=== PATIENT | male | born 1985 | race Caucasian/White ===

== ENCOUNTER 2016-10-18 13:31 | Emergency (ER) | payer OTHER ==
[~2016-10-18] VITALS: Ht 193 cm; Wt 117.9 kg
[2016-10-18 13:59] VITALS: BP 152/77
--- NOTE | 2016-10-18 15:51 | Emergency Room Report ---
History of Present Illness General Chief Complaint: Eye Problems Source: Patient Present Illness HPI 31 YO Male presents to the ED c/o : slow progressive vision loss in the right eye x 2 weeks. Pt. reports loss of vision today was more rapid than over the last two weeks. hx of bilateral myopia and macular degeneration of the left eye. Denies eye pain, redness, scratching sensation or increased tearing. Pt. denies trauma to the eye. denies photophobia, flashing lights, or discharge from the eye. pt reports intermittent burning sensation but otherwise denies eye pain. Pt denies Contact lens use. Denies dysuria, abdominal pain, or rashes. Denies CP, Palpitations, LOC, AMS, dizziness, Changes in Vision, Sensation, paresthesias, or a sudden severe headache. Allergies: Coded Allergies: No Known Allergies (Unverified , 10/18/16) Patient History Past Medical History: see triage record Past Surgical History: none Pertinent Family History: none Immunizations: UTD Reviewed Nursing Documentation: PMH: Agreed, PSxH: Agreed Nursing Documentation-PMH Past Medical History: No History, Except For Hx Neurological Problems: Yes - macular degeneration Review of Systems All Other Systems: negative except mentioned in HPI Physical Exam Vital Signs Date Time Temp Pulse Resp B/P Pulse Ox O2 Delivery O2 Flow Rate FiO2 10/18/16 13:37 98.2 76 18 152/77 98 Room Air Sp02 EP Interpretation: reviewed, normal General Appearance: no apparent distress, alert, GCS 15, non-toxic Head: normocephalic, atraumatic Eyes: bilateral eye EOMI, bilateral eye PERRL, bilateral eye normal inspection , bilateral eye other - no erythema, no increased lacrimation, no d/c noted, bilateral eye visual acuity - right eye 20/40, left eye 20/200, both eyes are 20/40 ENT: hearing grossly normal, normal pharynx, no angioedema, normal voice Neck: full range of motion Respiratory: lungs clear, normal breath sounds, speaking full sentences Cardiovascular #1: regular rate, rhythm, no edema Musculoskeletal: back normal, gait/station normal, normal range of motion, non- tender Neurologic: alert, oriented x3, responsive, motor strength/tone normal, sensory intact, speech normal Psychiatric: judgement/insight normal, memory normal, mood/affect normal Skin: normal color, no rash, warm/dry, well hydrated Medical Decision Making PA Attestation Dr. basilio is my supervising Physician whom patient management has been discussed with. Diagnostic Impression: Primary Impression: Vision loss of right eye ER Course 31 YO Male presents to the ED c/o : slow progressive vision loss in the right eye x 2 weeks. Pt. reports loss of vision today was more rapid than over the last two weeks. hx of bilateral myopia and macular degeneration of the left eye. Denies eye pain, redness, scratching sensation or increased tearing. Pt. denies trauma to the eye. denies photophobia, flashing lights, or discharge from the eye. Pt denies Contact lens use. Ddx considered but are not limited to: corneal abrasion, acute glaucoma, globe rupture, FB, Corneal Ulcer, conjunctivitis. Iridis Vital signs: are WNL, pt. is afebrile H&PE are most consistent with: corneal abrasion ORDERS: -Bedside US shows no evidence of retinal detachment. ED INTERVENTIONS: - phone consult with on-call crumb packer who determined pt. needs to be seen by retinal specialist for accurate diagnosis and treatment. - Moderate time spent on the phone with pt's insurance to facilitate urgent referral to retinal specialist ( 15 minutes) - DISCHARGE: At this time pt. is stable for d/c to home. -Pt is provided with a copy of his urgent referral authorization to be seen by Dr. Horvath, pt. is also provided with his office information. Will provide printed patient care instructions. Care plan and follow up instructions have been discussed with the patient prior to discharge. Last Vital Signs Date Time Temp Pulse Resp B/P Pulse Ox O2 Delivery O2 Flow Rate FiO2 10/18/16 13:59 98.2 86 18 152/77 98 Room Air Disposition: HOME, SELF-CARE Condition: Stable Referrals: NOT CHOSEN IPA/,REFERRING (PCP) Patient Instructions: Visual Disturbances Additional Instructions: Take medications as directed. Follow up with Retinal Specialist in 48-72 hours --- YOU HAVE BEEN GIVEN AN URGENT REFERRAL AUTHORIZATION THROUGH YOUR INSURANCE TO: Dr. Horvath Return sooner to ED if new symptoms occur, or current symptoms become worse. - Please note that this Emergency Department Report was dictated using [employer] or probation officer technology software, occasionally this can lead to erroneous entry secondary to interpretation by the dictation equipment. Clarice Sánchez. Oct 18, 2016 15:51
[2016-10-18 15:59] VITALS: BP 148/74
[2016-10-18 16:07] VITALS: BP 148/74
== END 2016-10-18 16:08 | disposition home or self-care (01) ==
LOC: EMR 15:35
DX: H54.61 Unqualified visual loss, right eye, normal vision left eye (principal)
CPT/HCPCS: 99284